=== PATIENT | male | born 1945 | race Caucasian/White ===

== ENCOUNTER 2023-08-29 11:09 | Outpatient (CLI) | payer MEDICARE, SELFPAY ==
[2023-08-29 11:21] VITALS: BMI 37.5
[2023-08-29 11:37] LABS: Basophils % 0.3 % (0.1-2.0); Eosinophils # 0.2 K/mm3 (0.0-0.4); Eosinophils % 3.5 % (0.1-12.0); Hematocrit 40.2 % (42.0-52.0); Hemoglobin 13.4 g/dL (14.1-18.0); Lymphocytes # 1.2 K/mm3 (0.7-4.5); Lymphocytes % 18.7 % (10-50); Mean Corpuscular HGB Conc 33.4 g/dL (31.8-35.4); Mean Corpuscular Hemoglobin 31.7 pg (27.0-31.2); Mean Corpuscular Volume 95.1 fl (80-94); Mean Platelet Volume 8.2 fl (7.4-10.4); Monocytes # 0.5 K/mm3 (0.1-1.0); Monocytes % 7.7 % (1.7-9.3); Neutrophils # 4.5 K/mm3 (1.8-7.8); Neutrophils % 69.8 % (37.0-80.0); Platelet Count 165 K/mm3 (142-424); Red Blood Count 4.22 M/mm3 (4.60-6.20); Red Cell Distribution Width 14.5 % (11.5-17.5); White Blood Count 6.4 K/mm3 (4.8-10.8)
[2023-08-29 11:42] LABS: Chloride 101 mmol/L (98-107)
[2023-08-29 11:43] LABS: Potassium 4.6 mmoL/L (3.5-5.1); Sodium 136 mmol/L (136-145)
[2023-08-29 11:45] LABS: Alanine Aminotransferase 16 U/L (12-78); Albumin Level 3.7 g/dl (3.5-5.0); Albumin/Globulin Ratio 1.2 (1.1-1.8); Alkaline Phosphatase 96 U/L (38-126); Anion Gap 6.6 mEq/L (5-15); Aspartate Amino Transferase 43 U/L (17-59); Bilirubin,Total 0.8 mg/dl (0.2-1.3); Blood Urea Nitrogen 12 mg/dl (9-20); Carbon Dioxide 33 mmol/L (22.0-30.0); Creatinine Clearance Estimated 106 mL/min (50-200); Estimated Glomerular Filt Rate 81 ml/min (>60); GFR (African American) 98 ML/MIN (>60); Globulin 3.1 g/dL (1.3-3.2); Total Protein,Serum 6.8 g/dl (6.3-8.2)
[2023-08-29 11:46] LABS: Calcium 9.2 mg/dl (8.4-10.2); Glucose 166 mg/dl (74-100)
[2023-08-29] MEDS: SODIUM CHLORIDE 0.9% 50ML BAG 50 ML IV (12:19)
[2023-08-29] MEDS: CEMIPLIMAB-RWLC 350 MG in 0.9 % SODIUM CHLORIDE 100 ML 214 MG IV (12:19)
[2023-08-29 12:25] VITALS: BP 133/79; PULSE 69; RESP 18; O2SAT 93
[2023-08-29 12:40] VITALS: BP 138/77; PULSE 73; RESP 18
[2023-08-29 12:55] VITALS: BP 142/77; PULSE 68; RESP 18
[2023-08-29 13:15] VITALS: BP 139/64; PULSE 74; RESP 18; O2SAT 94
== END 2023-08-29 13:15 | disposition home or self-care (01) ==
PROVIDERS: PCP Internal Medicine; Visit Provider Internal Medicine Medical Oncology
DX: C07 Malignant neoplasm of parotid gland (principal); Z79.899 Other long term (current) drug therapy
CPT/HCPCS: 80053; 84443; 85025; 96413; J9119

== ENCOUNTER 2023-09-17 12:32 | Outpatient (CLI) | payer MEDICARE, SELFPAY ==
[2023-09-17 12:33] VITALS: BMI 37.5
[2023-09-17 12:57] LABS: Chloride 102 mmol/L (98-107); Sodium 134 mmol/L (136-145)
[2023-09-17 12:58] LABS: Potassium 4.3 mmoL/L (3.5-5.1)
[2023-09-17 13:00] LABS: Alanine Aminotransferase 21 U/L (12-78); Albumin Level 3.4 g/dl (3.5-5.0); Albumin/Globulin Ratio 1.1 (1.1-1.8); Alkaline Phosphatase 111 U/L (38-126); Anion Gap 8.3 mEq/L (5-15); Aspartate Amino Transferase 27 U/L (17-59); Bilirubin,Total 0.6 mg/dl (0.2-1.3); Blood Urea Nitrogen 14 mg/dl (9-20); Calcium 9.5 mg/dl (8.4-10.2); Carbon Dioxide 28 mmol/L (22.0-30.0); Creatinine Clearance Estimated 97 mL/min (50-200); Estimated Glomerular Filt Rate 65 ml/min (>60); GFR (African American) 78 ML/MIN (>60); Glucose 262 mg/dl (74-100); Total Protein,Serum 6.4 g/dl (6.3-8.2)
[2023-09-17 13:04] LABS: Basophils % 0.6 % (0.1-2.0); Eosinophils # 0.2 K/mm3 (0.0-0.4); Eosinophils % 2.4 % (0.1-12.0); Hematocrit 42.4 % (42.0-52.0); Hemoglobin 13.5 g/dL (14.1-18.0); Mean Corpuscular Hemoglobin 31.1 pg (27.0-31.2); Mean Corpuscular Volume 97.3 fl (80-94); Mean Platelet Volume 8.2 fl (7.4-10.4); Monocytes # 0.4 K/mm3 (0.1-1.0); Monocytes % 4.8 % (1.7-9.3); Neutrophils # 6.2 K/mm3 (1.8-7.8); Neutrophils % 79.2 % (37.0-80.0); Platelet Count 266 K/mm3 (142-424); Red Blood Count 4.35 M/mm3 (4.60-6.20); Red Cell Distribution Width 14.2 % (11.5-17.5); White Blood Count 7.8 K/mm3 (4.8-10.8)
--- NOTE | 2023-09-17 13:46 | PC.NURSE ---
1346-pt returned from oncologist; treatment has been cancelled and pt to be referred to hospice.
[2023-09-17 14:00] LABS: Thyroid Stimulating Hormone 2.07 uIU/mL (0.465-4.68)
== END 2023-09-17 13:46 | disposition home or self-care (01) ==
LOC: INF 12:32
PROVIDERS: Visit Provider Internal Medicine Medical Oncology
DX: C07 Malignant neoplasm of parotid gland (principal); Z79.899 Other long term (current) drug therapy
CPT/HCPCS: 36415; 80053; 84443; 85025